=== PATIENT | male | born 1940 | race Caucasian/White ===

== ENCOUNTER 2019-07-20 15:00 | Emergency (ER) | payer MEDICARE ==
[~2019-07-20] VITALS: Ht 193 cm; Wt 63.0 kg
[2019-07-20] MEDS ORDERED: CLOPIDOGREL75 MG PO (15:24)
[2019-07-20] MEDS ORDERED: AMLODIPINE BESY10 MG PO (15:24)
[2019-07-20] MEDS ORDERED: DONEPEZIL HCL10 MG PO (15:26)
[2019-07-20] MEDS ORDERED: TRAZODONE150 MG PO (15:26)
[2019-07-20 15:32] LABS: BASO # 0.1 10*3/uL (0.0-0.1); BASO % 0.8 % (0.0-1.0); EOS # 0.2 10*3/uL (0.0-0.4); EOS % 2.6 % (1.0-4.0); HEMATOCRIT 36.6 % (42.0-52.0); HEMOGLOBIN 11.6 g/dl (14.0-18.0); LYMPH % 13.6 % (27.0-41.0); MEAN CELL VOLUME 97.1 fl (80.0-94.0); MEAN CORPUSCULAR HGB 30.8 pg (27.0-31.0); MEAN CORPUSCULAR HGB CONC 31.7 g/dl (33.0-37.0); MEAN PLATELET VOLUME 9.6 fl (9.6-12.3); MONO # 0.7 10*3/uL (0.1-1.0); MONO % 9.9 % (3.0-9.0); NEUT # 5.3 10*3/uL (2.3-7.9); NEUT % 72.6 % (47.0-73.0); PLATELET COUNT AUTOMATED 182 10*3/uL (130-400); RED BLOOD COUNT 3.77 10*6/uL (4.50-5.90); RED CELL DISTRI WIDTH 13.1 % (0-14.5); WHITE BLOOD COUNT 7.3 10*3/uL (4.8-10.8)
[2019-07-20 15:45] LABS: ACT PARTIAL THROMBO TIME 28.3 SECONDS (20.0-32.1)
[2019-07-20 15:47] LABS: ALBUMIN 3.2 gm/dl (3.1-4.5); CREATININE 1.51 mg/dL (0.70-1.30); POTASSIUM 4.4 mmol/L (3.5-5.1); TOTAL PROTEIN 6.8 gm/dL (6.4-8.2)
[2019-07-20 16:44] LABS: BILIRUBIN NEGATIVE (NEGATIVE); BLOOD 3+ (NEGATIVE); CLARITY CLOUDY (CLEAR); COLOR RED (YELLOW); GLUCOSE NEGATIVE (NEGATIVE); KETONE TRACE (NEGATIVE); NITRITE POSITIVE (NEGATIVE); PH 6.5 (5.0-9.0)
[2019-07-20 16:48] LABS: LEUKO ESTERASE 2+ (NEGATIVE)
[2019-07-20 16:56] LABS: RBC TNTC rbc/hpf (0-2); WBC TNTC wbc/hpf (0-5)
[2019-07-20] MEDS ORDERED: AMINOPHYLLIN200 MG PO (18:07)
== END 2019-07-20 18:27 | disposition home or self-care (01) ==
LOC: ED 15:00
PROVIDERS: Nurse Practitioner Family
DX: N39.0 Urinary tract infection, site not specified (principal); Z85.46 Personal history of malignant neoplasm of prostate; Z88.0 Allergy status to penicillin; Z79.899 Other long term (current) drug therapy

== ENCOUNTER → 2019-11-18 | Outpatient (CLI) | payer MEDICARE ==
[~2019-11-18] MED LIST: AMINOPHYLLIN200 MG PO; AMLODIPINE BESY10 MG PO; CLOPIDOGREL75 MG PO; DONEPEZIL HCL10 MG PO; TRAZODONE150 MG PO
[2019-11-18 13:08] LABS: CREATININE 1.53 mg/dL (0.70-1.30)
== END | disposition home or self-care (01) ==
LOC: LAB 12:28 → CT 13:00 → US 11-30 12:30
PROVIDERS: Radiology Diagnostic Radiology
DX: I25.10 Atherosclerotic heart disease of native coronary artery without angina pectoris (principal); I71.4 Abdominal aortic aneurysm, without rupture; I73.9 Peripheral vascular disease, unspecified; I77.1 Stricture of artery; I74.3 Embolism and thrombosis of arteries of the lower extremities; I70.1 Atherosclerosis of renal artery; K76.89 Other specified diseases of liver; N28.1 Cyst of kidney, acquired; K57.30 Diverticulosis of large intestine without perforation or abscess without bleeding; Z95.828 Presence of other vascular implants and grafts